=== PATIENT | male | born 1935 | race Caucasian/White ===

== ENCOUNTER 2018-04-12 04:06 | Emergency (ER) | payer MEDICARE ==
--- NOTE | 2018-04-12 05:05 | EDM.PDOC ---
ED HPI GENERAL MEDICAL PROBLEM - General Chief Complaint: Gastrointestinal Problem Stated Complaint: BLEEDING Time Seen by Provider: 04/12/18 05:00 Source of Information: Reports: Patient History Limitations: Reports: No Limitations - History of Present Illness INITIAL COMMENTS - FREE TEXT/NARRATIVE: This man said that for the past few days he's had a little bit of rectal spotting and a mucousy discharge. Tonight at about midnight he started having some blood dripping and it just got worse the longer he waited. it didn't seem to want to stop - Related Data Allergies Allergy/AdvReac Type Severity Reaction Status Date / Time No Known Allergies Allergy Verified 04/12/18 04:21 Home Meds: Home Meds Aspirin [Lo-Dose Aspirin EC] 81 mg PO DAILY 04/12/18 [History] Calcium Carbonate/Vitamin D3 [Calcium 1,000 + D3 Caplet] 1 tab PO DAILY [History] Cholecalciferol (Vitamin D3) [Vitamin D3] 1,000 unit PO DAILY 04/12/18 [History] Cyanocobalamin (Vitamin B-12) [B-12] 500 mcg PO DAILY 04/12/18 [History] Fexofenadine [Ritu] 60 mg PO DAILY 04/12/18 [History] Finasteride 5 mg PO DAILY 04/12/18 [History] Gabapentin [Neurontin] 300 mg PO TID 04/12/18 [History] Magnesium Oxide [Magnesium] 400 mg PO BID 04/12/18 [History] Metoprolol Succinate [Toprol XL 50mg] 25 mg PO DAILY 04/12/18 [History] Mycophenolate Mofetil [Cellcept] 1,000 mg PO BID 04/12/18 [History] Omeprazole Magnesium 20 mg PO DAILY 04/12/18 [History] Tacrolimus 1 mg PO BID 04/12/18 [History] Tamsulosin [Tamsulosin 24 Hr] 0.4 mg PO DAILY 04/12/18 [History] Valsartan 160 mg PO DAILY 04/12/18 [History] atorvaSTATin [Lipitor] 40 mg PO BEDTIME 04/12/18 [History] hydrALAZINE HCl [Hydralazine HCl] 100 mg PO TID 04/12/18 [History] Past Medical History HEENT History: Reports: Cataract Cardiovascular History: Reports: Heart Failure, High Cholesterol, Hypertension, PVD Gastrointestinal History: Reports: Cholelithiasis, GERD Genitourinary History: Reports: BPH, Chronic Renal Insuffiency Musculoskeletal History: Reports: Back Pain, Chronic Other Musculoskeletal History: lumbar spinal stenosis Neurological History: Reports: Neuropathy, Peripheral Endocrine/Metabolic History: Reports: Diabetes, Type II Hematologic History: Reports: Anemia Oncologic (Cancer) History: Reports: Basal Cell Carcinoma - Past Surgical History HEENT Surgical History: Reports: Cataract Surgery, Tonsillectomy Other Cardiovascular Surgeries/Procedures: 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 ED EXAM, GI/ABD - Physical Exam Exam: See Below Exam Limited By: Other (Exam Limited to the rectal exam) General Appearance: Alert, WD/WN Rectal (Males) Exam: Hemorrhoids (He has some external hemorrhoids one appears to have been possibly bleeding recently. The digital rectal exam showed no evidence of any blood in the rectum) Course - Vital Signs Last Recorded V/S: Last Vital Signs Temp 35.2 C 04/12/18 04:14 Pulse 72 04/12/18 04:14 Resp 20 04/12/18 04:14 BP 152/79 H 04/12/18 04:14 Pulse Ox 97 04/12/18 04:14 Departure - Departure Time of Disposition: 05:04 Disposition: Home, Self-Care 01 Condition: Fair Clinical Impression: Rectal bleeding - Discharge Information Referrals: PCP,None [Primary Care Provider] - Additional Instructions: You have some external hemorrhoids that look like they may have bled recently. If you get more bleeding tried taking a wad of gauze or tissue and pressing up in the area and see if that will make it stop. If you continue to have problems then come on back to the ER
== END 2018-04-12 05:14 | disposition home or self-care (01) ==
LOC: JP.ED 04:06
DX: K62.5 Hemorrhage of anus and rectum (principal); I13.0 Hypertensive heart and chronic kidney disease with heart failure and stage 1 through stage 4 chronic kidney disease, or unspecified chronic kidney disease; E11.22 Type 2 diabetes mellitus with diabetic chronic kidney disease; I50.9 Heart failure, unspecified; N18.9 Chronic kidney disease, unspecified; E11.40 Type 2 diabetes mellitus with diabetic neuropathy, unspecified; Z87.891 Personal history of nicotine dependence; Z79.82 Long term (current) use of aspirin; Z79.899 Other long term (current) drug therapy
CPT/HCPCS: 99283

== ENCOUNTER 2019-04-17 09:44 | Emergency (ER) | payer MEDICARE ==
[2019-04-17] MEDS ORDERED: Lactated Ringers 1,000 ML IV ONE (10:25)
--- NOTE | 2019-04-17 10:36 | EDM.PDOC ---
ED HPI GENERAL MEDICAL PROBLEM - General Chief Complaint: Gastrointestinal Problem Stated Complaint: [facility] Time Seen by Provider: 04/17/19 10:20 Source of Information: Reports: Patient, EMS, Old Records History Limitations: Reports: No Limitations - History of Present Illness INITIAL COMMENTS - FREE TEXT/NARRATIVE: 83 yo male presents with diarrhea that began about 0100h today and lasted until about 8:30 am today. He had some nausea, but no vomiting. No fever or bleeding. Has a hx of hernia repair only. His is out of town. Feels very weak. Onset: Today Onset Date: 04/17/19 Onset Time: 01:00 Duration: Improving Location: Reports: Abdomen Quality: Reports: Other (crampy) Severity: Mild Improves with: Reports: Other (? time, feeling a little better now. ) Worsens with: Reports: Other (unknown) Context: Reports: Other (uncertain) Associated Symptoms: Reports: Nausea/Vomiting (no vomiting, nausea now better without tx.), Weakness. Denies: Fever/Chills Treatments RF MANAGER: Reports: Other (see below) (none) - Related Data Allergies Allergy/AdvReac Type Severity Reaction Status Date / Time No Known Allergies Allergy Verified 04/17/19 09:52 Home Meds: Home Meds Aspirin [Lo-Dose Aspirin EC] 81 mg PO DAILY 04/12/18 [History] Calcium Carbonate/Vitamin D3 [Calcium 1,000 + D3 Caplet] 1 tab PO DAILY [History] Cholecalciferol (Vitamin D3) [Vitamin D3] 1,000 unit PO DAILY 04/12/18 [History] Cyanocobalamin (Vitamin B-12) [B-12] 500 mcg PO DAILY 04/12/18 [History] Fexofenadine [Ritu] 60 mg PO DAILY PRN 04/12/18 [History] Finasteride 5 mg PO DAILY 04/12/18 [History] Gabapentin [Neurontin] 300 mg PO TID 04/12/18 [History] Magnesium Oxide [Magnesium] 400 mg PO TID 04/12/18 [History] Metoprolol Succinate [Toprol XL 50mg] 25 mg PO DAILY 04/12/18 [History] Mycophenolate Mofetil [Cellcept] 1,000 mg PO BID 04/12/18 [History] Omeprazole Magnesium 20 mg PO DAILY 04/12/18 [History] Tacrolimus 1 mg PO BID 04/12/18 [History] Tamsulosin [Tamsulosin 24 Hr] 0.4 mg PO DAILY 04/12/18 [History] atorvaSTATin [Lipitor] 40 mg PO BEDTIME 04/12/18 [History] hydrALAZINE HCl [Hydralazine HCl] 100 mg PO TID 04/12/18 [History] Linagliptin [Tradjenta] 1 tab PO DAILY 04/17/19 [History] Losartan Potassium 1 tab PO DAILY 04/17/19 [History] Past Medical History HEENT History: Reports: Cataract, Hard of Hearing, Impaired Vision Cardiovascular History: Reports: Heart Failure, High Cholesterol, Hypertension, PVD Gastrointestinal History: Reports: Cholelithiasis, GERD Genitourinary History: Reports: BPH, Chronic Renal Insuffiency Musculoskeletal History: Reports: Back Pain, Chronic Other Musculoskeletal History: lumbar spinal stenosis Neurological History: Reports: Neuropathy, Peripheral Endocrine/Metabolic History: Reports: Diabetes, Type II Hematologic History: Reports: Anemia Oncologic (Cancer) History: Reports: Basal Cell Carcinoma - Infectious Disease History Infectious Disease History: Reports: Chicken Pox, Measles, Mumps, Shingles - Past Surgical History HEENT Surgical History: Reports: Cataract Surgery, Tonsillectomy Other Cardiovascular Surgeries/Procedures: 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 GI Surgical History: Reports: Cholecystectomy, Hernia Repair/Other Social & Family History - Tobacco Use Smoking Status *Q: Former Smoker Years of Tobacco use: 20 Packs/Tins Daily: 0.5 Used Tobacco, but Quit: Yes Month/Year Tobacco Last Used: 32 years ago Second Hand Smoke Exposure: No - Caffeine Use Caffeine Use: Reports: Coffee - Alcohol Use Days Per Week of Alcohol Use: 4 Number of Drinks Per Day: 1 Total Drinks Per Week: 4 - Recreational Drug Use Recreational Drug Use: No ED ROS GENERAL - Review of Systems Review Of Systems: See Below Constitutional: Reports: Malaise, Weakness, Decreased Appetite HEENT: Reports: No Symptoms Respiratory: Reports: No Symptoms Cardiovascular: Reports: Lightheadedness. Denies: Dyspnea on Exertion Endocrine: Reports: No Symptoms GI/Abdominal: Reports: Abdominal Pain (cramping earlier), Anorexia, Diarrhea, Decreased Appetite, Nausea (now resolved.). Denies: Black Stool, Bloody Stool, Constipation, Distension, Flatus, Hematemesis, Hematochezia, Melena, Vomiting : Reports: No Symptoms Musculoskeletal: Reports: No Symptoms Skin: Reports: No Symptoms Neurological: Reports: No Symptoms Psychiatric: Reports: No Symptoms ED EXAM, GI/ABD - Physical Exam Exam: See Below Exam Limited By: No Limitations General Appearance: Alert, WD/WN, No Apparent Distress Eyes: Bilateral: Normal Appearance Ears: Normal External Exam, Normal Canal, Hearing Grossly Normal Nose: Normal Inspection, No Blood Throat/Mouth: Normal Inspection, Normal Lips, Normal Oropharynx, Normal Voice, No Airway Compromise Head: Atraumatic, Normocephalic Neck: Normal Inspection, Non-Tender Respiratory/Chest: No Respiratory Distress, Lungs Clear, Normal Breath Sounds, No Accessory Muscle Use Cardiovascular: Regular Rate, Rhythm, No Edema GI/Abdominal Exam: Soft, Non-Tender, Distended (minimal), Guarding, Rigid, Rebound, Tender, Abnormal Bowel Sounds (decreased). No: No Distention Back Exam: Normal Inspection. No: CVA Tenderness (R), CVA Tenderness (L) Extremities: Normal Inspection, Normal Range of Motion, Non-Tender, No Pedal Edema Neurological: Alert, Oriented, CN II-XII Intact, Normal Cognition, No Motor/ Sensory Deficits Psychiatric: Normal Affect, Normal Mood Skin Exam: Warm, Dry, Intact, Normal Color, No Rash Course - Vital Signs Last Recorded V/S: Last Vital Signs Temp 36.1 C 04/17/19 09:51 Pulse 84 04/17/19 09:51 Resp 24 H 04/17/19 09:51 BP 144/83 H 04/17/19 09:51 Pulse Ox 97 04/17/19 09:51 - Orders/Labs/Meds Orders: Active Orders 24 hr Category Date Time Status Sodium Chloride 0.9% [Normal Saline] 1,000 ml Med 04/17/19 11:45 Active IV ASDIRECTED Medication Orders Sodium Chloride (Normal Saline) 1,000 mls @ 500 mls/hr IV ASDIRECTED CHELLE Last Admin: 04/17/19 11:50 Dose: 500 mls/hr Labs: Laboratory Tests 04/17/19 Range/Units 10:25 Sodium 138 L (140-148) mmol/L Potassium 5.1 (3.6-5.2) mmol/L Chloride 104 (100-108) mmol/L Carbon Dioxide 21 (21-32) mmol/L Anion Gap 18.1 H (5.0-14.0) mmol/L BUN 70 H (7-18) mg/dL Creatinine 2.2 H (0.8-1.3) mg/dL Est Cr Clr Drug Dosing 24.55 mL/min Estimated GFR (MDRD) 29 L (>60) Glucose 138 H (74-106) mg/dL Calcium 9.2 (8.5-10.1) mg/dL Meds: Medications Generic Name Dose Route Start Last Admin Trade Name Freq PRN Reason Stop Dose Admin Sodium Chloride 1,000 mls @ 500 mls/hr 04/17/19 11:45 04/17/19 11:50 Normal Saline IV 500 mls/hr ASDIRECTED CHELLE Administration Discontinued Medications Generic Name Dose Route Start Last Admin Trade Name Freq PRN Reason Stop Dose Admin Lactated Ringer's 1,000 mls @ 1,000 mls/hr 04/17/19 10:25 04/17/19 10:48 Ringers, Lactated IV 04/17/19 11:24 1,000 mls/hr BOLUS ONE Administration Departure - Departure Time of Disposition: 13:45 Disposition: Home, Self-Care 01 Condition: Fair Clinical Impression: Mild dehydration Diarrhea Qualifiers: Diarrhea type: presumed infectious Qualified Code(s): R19.7 - Diarrhea, unspecified - Discharge Information *PRESCRIPTION DRUG MONITORING PROGRAM REVIEWED*: No *COPY OF PRESCRIPTION DRUG MONITORING REPORT IN PATIENT JENNIFER: No Instructions: Diarrhea, Adult Referrals: PCP,None [Primary Care Provider] - Forms: ED Department Discharge Additional Instructions: Take loperamide per package instructions as needed for diarrhea. Drink clear liquids and eat a BRAT diet today(Bananas, Rice, applesauce, dry white toast, yogurt, jello, popsicles, and tea). Advance diet slowly as tolerated. Recheck if not improving. - My Orders Last 24 Hours: My Active Orders 04/17/19 11:45 Sodium Chloride 0.9% [Normal Saline] 1,000 ml IV ASDIRECTED - Assessment/Plan Last 24 Hours: My Active Orders 04/17/19 11:45 Sodium Chloride 0.9% [Normal Saline] 1,000 ml IV ASDIRECTED
[2019-04-17] MEDS ORDERED: Sodium Chloride 0.9% 1,000 ML IV SCH (11:45)
[2019-04-17] MEDS ORDERED: Atropine/Diphenoxylate 0.025-2.5 MG Tab PO ONE (17:01)
== END 2019-04-17 16:20 | disposition home or self-care (01) ==
LOC: JP.ED 09:44
DX: E86.0 Dehydration (principal); R19.7 Diarrhea, unspecified; Z87.891 Personal history of nicotine dependence; I13.0 Hypertensive heart and chronic kidney disease with heart failure and stage 1 through stage 4 chronic kidney disease, or unspecified chronic kidney disease; E11.22 Type 2 diabetes mellitus with diabetic chronic kidney disease; I50.9 Heart failure, unspecified; D63.1 Anemia in chronic kidney disease; E11.42 Type 2 diabetes mellitus with diabetic polyneuropathy; K21.9 Gastro-esophageal reflux disease without esophagitis; Z79.82 Long term (current) use of aspirin
CPT/HCPCS: 36415; 80048; 96360; 96361; 99283; A9270; J7030; J7120